=== PATIENT | male | born 1990 | race Asian ===

== ENCOUNTER 2018-06-18 16:35 | Emergency (ER) | payer OTHER ==
[~2018-06-18] VITALS: Ht 180.3 cm; Wt 78.9 kg
[2018-06-18 16:35] VITALS: TEMP 100.2
[2018-06-18 18:07] LABS: PLATELET COUNT 264 K/uL (142-355)
[2018-06-18 18:21] LABS: POTASSIUM 3.8 mmol/L (3.6-5.2)
[2018-06-18 19:56] VITALS: BP 129/79
== END 2018-06-18 19:57 | disposition home or self-care (01) ==
LOC: ED 16:35
PROVIDERS: Emergency Medicine
DX: N23 Unspecified renal colic (principal)
CPT/HCPCS: 80053; 81000; 82150; 83690; 85027; 96360; 96374; 96375; 99284; J1885; J2405; Q9963

== ENCOUNTER 2019-08-23 09:32 | Emergency (ER) | payer OTHER ==
[~2019-08-23] VITALS: Ht 180.3 cm; Wt 78.9 kg
[2019-08-23 09:52] VITALS: TEMP 98.2
[2019-08-23] MEDS ORDERED: METO25TA2 PO (11:02)
[2019-08-23 12:12] VITALS: BP 126/90
== END 2019-08-23 12:12 | disposition home or self-care (01) ==
LOC: ED 09:32
PROC: 0HQFXZZ Repair Right Hand Skin, External Approach (ICD-10-PCS; principal; 2019-08-23)
PROC: 0HQDXZZ Repair Right Lower Arm Skin, External Approach (ICD-10-PCS; 2019-08-23)
DX: S51.811A Laceration without foreign body of right forearm, initial encounter (principal); S61.011A Laceration without foreign body of right thumb without damage to nail, initial encounter; W22.8XXA Striking against or struck by other objects, initial encounter; Y92.89 Other specified places as the place of occurrence of the external cause
CPT/HCPCS: 99283